=== PATIENT | male | born 1955 | race Caucasian/White ===

== ENCOUNTER 2017-08-14 07:32 | Day surgery (SDC) | payer OTHER ==
[2017-08-12 11:42] VITALS: BMI 28.8
--- NOTE | 2017-08-14 07:28 | HP ---
History & Physical Update - History History: No Change - Physical Physical: No Change - Assessment Assessment: No Change - Plan Plan: No Change (Initial H&P is located in his paper chart. No new complaints or medications. Here today for elective laminectomy L2/3)
[2017-08-14] MEDS ORDERED: oxyCODONE HCL 10 MG SUSTAINED ACTING TABLET PO STA (07:55)
[2017-08-14] MEDS ORDERED: oxyCODONE HCL 10 MG SUSTAINED ACTING TABLET ONE (08:05)
[2017-08-14] MEDS ORDERED: ceFAZolin SODIUM 1 GM VIAL ONE (09:53)
[2017-08-14] MEDS ORDERED: DEXAMETHASONE SOD PHOSPHATE/PF 10 MG/ML SDV ONE (10:24)
[2017-08-14] MEDS ORDERED: MIDAZOLAM HCL 2 MG/2 ML SINGLE DOSE VIAL ONE ×2 (10:24→11:04)
[2017-08-14] MEDS ORDERED: BUPIVACAINE HCL/PF (5 MG/ML) 30 ML VIAL IJ ONE (10:24)
[2017-08-14] MEDS ORDERED: THROMBIN (BOVINE) 5,000 UNIT VIAL TP ONE ×2 (10:43→11:39)
[2017-08-14] MEDS ORDERED: methylPREDNISolone ACET (DEPO) 40 MG/1 ML VIAL ONE (10:43)
[2017-08-14] MEDS ORDERED: LIDOCAINE 1%/EPI 1:100000 (20 ML MULTI DOSE VIAL) ONE (10:43)
[2017-08-14] MEDS ORDERED: BUPIVACAINE HCL/PF 0.5% (5MG/ML) 10 ML VIAL ONE (11:03)
[2017-08-14] MEDS ORDERED: LIDOCAINE HCL/PF 2% SDV 5ML VIAL ONE (11:09)
[2017-08-14] MEDS ORDERED: ePHEDrine SULFATE 50 MG/1 ML AMPULE ONE (11:20)
[2017-08-14] MEDS ORDERED: LIDOCAINE 1%/EPI 1:100000 (50 ML MULTI DOSE VIAL) INF ONE (11:25)
[2017-08-14] MEDS ORDERED: GELATIN SPONGE,ABSORBABLE 1 GM PACKET TP ONE (11:40)
[2017-08-14] MEDS ORDERED: methylPREDNISolone ACET (DEPO) 40 MG/1 ML VIAL IM ONE (12:23)
--- NOTE | 2017-08-14 13:22 | OP ---
Operative Note - Note: Operative Date: 08/14/17 Pre-Operative Diagnosis: L2/3 stenosis with radiculopathy Operation: L2/3 bilateral laminectomy Post-Operative Diagnosis: Same as Pre-op Surgeon: Luis Alberto Freeman Host And Hostess: Robe Herrera Anesthesiologist/SR. MANAGER: Chris Nicole Anesthesia: Spinal Estimated Blood Loss (mls): 20 Fluid Volume Replaced (mls): 800 Operative Report Dictated: Yes
--- NOTE | 2017-08-14 13:23 | SURG ---
Surgery Associate Field Service Engineer Note Associate Field Service Engineer: Robe Herrera PA-C Date of Service: 08/14/17 Diagnosis: L2/3 stenosis with radiculopathy Procedure: L2/3 bilateral laminectomy I was present for the entirety of the operative procedure. For further detail, please refer to operative report. Visit type - Case Type Case Type: Scheduled - New patient This patient is new to me today: Yes Date on this admission: 08/14/17
--- NOTE | 2017-08-14 14:06 | OP ---
DATE OF OPERATION: 08/14/2017 PREOPERATIVE DIAGNOSIS: Spinal stenosis at L2-3. POSTOPERATIVE DIAGNOSIS: Spinal stenosis at L2-3. PROCEDURE PERFORMED: Laminectomy at L2-3. SURGEON: Luis Alberto Freeman MD SHIFT SUPERINTENDENT: SOPHIA Posada ESTIMATED BLOOD LOSS: 50 mL INTRAVENOUS FLUIDS: Per Anesthesia. ANESTHESIA: Spinal/TLIP. COMPLICATIONS: None. DISPOSITION: Patient brought to the PACU in stable condition. INDICATIONS FOR SURGERY: The patient is a 62-year-old gentleman who has been suffering from pain from his back down his leg. X-rays and MRI were completed which noted that he had spinal stenosis at L2-3. He had gone through an exhaustive course of treatment for this, which included medications, physical therapy as well as injections. Unfortunately, his pain continued to persist despite all this. At this point, risks, benefits, and alternatives were discussed, and the patient consented to surgery. DESCRIPTION OF PROCEDURE: Patient was brought to the operating room by the anesthesia staff. After appropriate patient identification was performed, spinal anesthesia/TLIP was given. Patient was placed prone onto the Luis frame with all areas of bony prominences well padded at this time. Two needles were placed into his back to sravan off the L2 and L3 segments. X-ray was taken to confirm this as correct. Dumont were removed, and 10 mL of lidocaine with epinephrine were injected in his back at this time. His back was prepped and draped in a sterile manner. At this point, a timeout was completed. An incision was made from the top of L2 down to the bottom of L3. Dissection was carried down to the fascia. Fascia was then split at this time, and appropriate retractors were then placed in. A spinal needle was placed onto the L2 lamina to sravan off the L2-3 segment. An x-ray was taken to confirm this as correct. The needle was removed, and the microscope was brought in. The interspinous ligament at L2-3 was removed. Portions of the L2 and L3 spinous processes were removed. A complete decompression was performed by removing portion of the inferior and superior facets such that by the end of the procedure the L3 nerve root appeared to be well decompressed. All bleeding was well controlled at this time. Steroid was placed over the nerve root. FloSeal was placed over that. The fascia was closed using a No. 1 Vicryl suture. Subcutaneous tissues were closed with 2-0 Vicryl suture. Skin was closed with 3-0 Monocryl suture. Dermabond was applied. Steri-Strips were applied. A sterile dressing was applied. Patient was placed supine on the OR bed and brought to the PACU in stable condition. LUIS ALBERTO FREEMAN M.D. ALVINO/[id number]
[2017-08-14 14:34] VITALS: PULSE 87; TEMP 98.3
[2017-08-14 15:01] VITALS: BP 126/84
== END 2017-08-14 14:55 | disposition home or self-care (01) ==
LOC: FASU 07:32
PROVIDERS: ATTEND Orthopaedic Surgery Orthopaedic Surgery of the Spine
PROC: 01NB0ZZ Release Lumbar Nerve, Open Approach (ICD-10-PCS; principal; 2017-08-14 09:45)
DX: M48.061 Spinal stenosis, lumbar region without neurogenic claudication (principal)
CPT/HCPCS: 72100-TC-FY; 94760